=== PATIENT | male | born 1940 | race Caucasian/White ===

== ENCOUNTER 2022-01-11 14:50 | Outpatient (CLI) | payer MEDICARE, SELFPAY ==
--- NOTE | ~2022-01-11 | XR_ITS ---
XR abdomen/kub 1V 01/11/2022 15:18 Indication: Left-sided kidney stones. Procedure: KUB Comparison: No prior studies for comparison. Findings: There is a left internal ureteral stent in expected position. There are clustered stones in the lower pole of the left kidney. There are also clustered stones near the expected location of the left UPJ and left UVJ. There are several rounded calcifications in the right upper abdomen which may represent hepatic granulomas, although right renal stones are not excluded. Bowel pattern nonobstruc tive. Moderate lumbar spondylosis. Impression: 1: Left renal and ureteral stones with left internal ureteral stent in expected position. Reviewed, dictated and finalized at location A. Impression: 1: Left renal and ureteral stones with left internal ureteral stent in expected position.
== END 2022-01-11 14:51 | disposition home or self-care (01) ==
LOC: ANHIMG 15:02
PROVIDERS: PCP Internal Medicine; Visit Provider Urology
DX: N20.2 Calculus of kidney with calculus of ureter (principal)
CPT/HCPCS: 74018

== ENCOUNTER 2022-02-24 11:59 | Outpatient (CLI) | payer MEDICARE, SELFPAY ==
--- NOTE | ~2022-02-24 | XR_ITS ---
EXAMINATION: XR abdomen/kub 1V INDICATION: Left-sided kidney stone TECHNIQUE: Supine views of the abdomen were obtained on 2 radiographs. COMPARISON: 01/11/2022 FINDINGS: A left internal ureteral stent is in expected position. There are unchanged stones adjacent to the proximal stent at the ureteropelvic junction. Previous stones described near the distal urete r at the UVJ are not definitely seen. There are stones in the lower pole of the left kidney measuring up to 6 mm. There is moderate lumbar spondylosis. 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 The visualized lung bases are clear. There is a moderate volume of colonic stool. Right upper quadrant ca lcifications may reflect healed granulomatous disease of the liver and/or stones of the right the kid ruchi. IMPRESSION: 1. Left internal ureteral stent in expected position with stones in the left kidney lower pole and at the ureteropelvic junction. Reviewed, dictated and finalized at location F. T PREPPER IMPRESSION: 1. Left internal ureteral stent in expected position with stones in the left ki dney lower pole and at the ureteropelvic junction.
== END 2022-02-24 12:00 | disposition home or self-care (01) ==
PROVIDERS: PCP Internal Medicine; Visit Provider Urology
DX: N20.0 Calculus of kidney (principal)
CPT/HCPCS: 74018

== ENCOUNTER 2022-03-08 10:54 | Outpatient (CLI) | payer MEDICARE, SELFPAY ==
--- NOTE | 2022-03-08 11:04 | ECG_ITS ---
Measurements Intervals [place] Rate: 70 P: 28 IA: 220 QRS: -61 QRSD: 159 T: 118 QT: 455 QTc: 493 Interpretive Statements SINUS RHYTHM WITH FIRST DEGREE AV BLOCK RIGHT BUNDLE BRANCH BLOCK LEFT VENTRICULAR HYPERTROPHY AND ST-T CHANGE INFERIOR INFARCT, AGE INDETERMINATE BASELINE WANDER- V4 ABNORMAL ECG NO PREVIOUS ECG AVAILABLE FOR COMPARISON Electronically Signed On 03-08-2022 11:42:31 PHARMACY INFORMATICIST by Rafael Calvert D.O.
[2022-03-08 11:53] LABS: Anion Gap 11 mmol/L (8-16); Blood Urea Nitrogen 21 mg/dL (9-20); Calcium 9.3 mg/dL (8.4-10.2); Carbon Dioxide 23 mmol/L (22-30); Chloride 108 mmol/L (98-107); Estimated Glomerular Filt Rate > 60; Glucose 108 mg/dL (65-110); Potassium 4.1 mmol/L (3.4-5.0); Sodium 142 mmol/L (137-145)
[2022-03-08 11:55] LABS: INR 1.1; Prothrombin Time 14.1 Seconds (11.1-14.7)
[2022-03-08 11:56] LABS: Partial Thromboplastin Time 26.2 SECONDS (22.3-36.8)
== END 2022-03-08 10:55 | disposition home or self-care (01) ==
PROVIDERS: Anesthesiology; PCP Internal Medicine; Visit Provider Urology
DX: N20.0 Calculus of kidney (principal); E11.9 Type 2 diabetes mellitus without complications; Z01.818 Encounter for other preprocedural examination; I45.10 Unspecified right bundle-branch block; I44.0 Atrioventricular block, first degree
CPT/HCPCS: 36415; 80048; 85610; 85730; 87086; 93005

== ENCOUNTER 2022-03-12 00:57 | Day surgery (SDC) | payer MEDICARE, SELFPAY ==
[2022-03-02 12:47] VITALS: BMI 23.2
--- NOTE | 2022-03-02 13:04 | PC.NURSE ---
PRE-OP INSTRUCTIONS, PLEASE READ CAREFULLY Report to the Outpatient Waiting Room, entrance under the green pavilion located off [facility], at time _1045_ on date _03/12/22_. Planned Procedure Time: _1245_. Time changes happen often and if your time is changed the preop area will call you the afternoon before. - You and your visitor will be asked to self-screen and do not enter if you have any COVID symptoms. - Only one visitor is requested with a max of two and NO children visitors are allowed at this time. - The patient visitor may be requested to leave or wait in car when not with patient due to distancing restrictions. - A mask is optional within the hospital. Patients may have clear liquids (water, carbonated beverages, clear teas, apple juice) until 3 hours prior to surgery (0945 AM) with a maximum of 20 ounces. - No food from midnight until time of surgery Take the following medications with a SIP of water the morning of surgery: _TYLENOL IF NEEDED_ Medications to discontinue per DR. LUIS - _IBUPROFEN 7 DAYS PRIOR TO SURGERY, Date to take last dose 03/04/22_ Please no make-up, nail icelandic, hairspray, perfume, deodorant, or body powder the day of surgery. No jewelry (including any body piercings) or valuables the day of surgery, leave them at home. Please take a shower or bath the night before, or the morning of, surgery with an antibacterial soap. Wear comfortable, loose fitting clothing. - Jewelry must be removed prior to entering the operating room. Rings and piercings that are not removed may be cut off. - The hospital will not accept responsibility for valuables. - Please leave all valuables, including medications, at home the day of surgery. If you are going home after surgery, a licensed driver's license examiner must drive you home. - NO public transportation without another adult if you receive anesthesia. - We recommend that an adult stay with you for 24 hours following discharge. - We also recommend that you do not drive, make important decision, drink alcoholic beverages, or take any drugs that were not prescribed by your health care provider for at least 24 hours after your discharge time. Follow any additional instructions given to you from your surgeon. If you or anyone in your household have experienced Covid symptoms in the past week, please notify your surgeon or the nurse liaison at the phone number below for possible testing. Telephone instructions given to _PT'S DAUGHTER-THERESA_and asked if any additional questions and then verbalized understanding. Patient advised to call surgeon office or pre surgery nurse liaison [phone] if any additional questions.
--- NOTE | 2022-03-08 07:42 | P.HP_ITS ---
History of Present Illness History of Present Illness Consent: Risks, benefits, and alternatives have been discussed and questions answered. Patient agrees to proceed with procedure. Chief complaint: left renal and ureteral stone Narrative: Israel Galarza is a 81 year old male status post ESWL for a 2 cm stone in his left kidney in January 2022 at [facility]. Follow-up imaging reveals good fragmentation of the stone fragments along the left ureter. After discussion of options he elects for repeat left ESWL. There was minimal stone burden and he is quite irritated with the stent, hence our decision for simultaneous left ureteral stent. Aware of the risk of this including, but not limited to, adverse cardiopulmonary events, need for additional procedures, hematuria and perinephric hematoma. Review of Systems Review of Systems: All systems reviewed & are unremarkable except as noted in HPI and below [facility] Social History Social History Smoking status: Current every day smoker Tobacco type: cigarettes Additional smoking assessment comments: STATES SMOKES 10-15 CIGARETTES/DAY Alcohol intake: former Alcohol use details: QUIT 2006~ Substance use: never Substance use type: does not use Additional living arrangements comments: PT LIVES WITH SON Spiritual care concerns: No Meds Home Medications and Allergies Home Medications Medication Instructions Recorded Confirmed Type acetaminophen 500 mg tablet 1,000 mg PO Q6H PRN Pain 03/02/22 03/02/22 History ibuprofen 800 mg tablet 800 mg PO TID PRN Pain 03/02/22 03/02/22 History metformin 1,000 mg tablet 500 mg BID 03/02/22 03/02/22 History mirtazapine 30 mg tablet 30 mg PO HS 03/02/22 03/02/22 History pantoprazole 40 mg tablet,delayed 40 mg PO DAILY PRN Acid Reflux 03/02/22 03/02/22 History release Allergies Allergy/AdvReac Type Severity Reaction Status Date / Time No Known Allergies Allergy Verified 03/02/22 12:43 Exam Const: General: no acute distress Resp: Effort & Inspection: normal respiratory effort GI: Inspection: non-distended GI Palp: No abdominal tenderness and No Guarding due to palpation present (GI) Auscultation: normal bowel sounds Assessment and Plan Assessment and plan (1) Left renal stone: Code(s): N20.0 - Calculus of kidney Status: Acute Assessment and Plan: * cystoscopy, left ureteral stent removal, left ESWL
[2022-03-12] VITALS (7 sets, daily range): BP systolic 120–156; BP diastolic 70–85; PULSE 54–88; RESP 12–20; TEMP 36.6–37.1; O2SAT 94–100
--- NOTE | ~2022-03-12 | XR_ITS ---
XR abdomen/kub 1V 03/12/2022 11:09 Indication: ESWL. Renal stones. Procedure: KUB Comparison: Comparison to multiple prior studies sequentially, with oldest reviewed study dated 06/2021. Findings: There are bilateral renal stones. There is a left internal ureteral stent in expected posit ion. There are stones clustered at the expected location of the left UPJ. There are pelvic phlebolith s. Nonobstructive bowel gas pattern. Advanced lumbar spondylosis. Impression: 1: Persistent bilateral nephrolithiasis with clustered stones at the left UPJ. Left internal ureteral stent in expected position. Reviewed, dictated and finalized at location A. ERIOLOGIST MEDICAL Impression: 1: Persistent bilateral nephrolithiasis with clustered stones at the left UPJ. Left internal ureteral stent in expected position.
--- NOTE | 2022-03-12 06:45 | WPDHPUPDATE1 ---
History and Physical Update Update Date/Time: 03/12/22 06:45 History and Physical has been reviewed, including an updated exam of the patient. There are NO changes in the patient's condition. Risks, benefits, and alternatives have been discussed and questions answered. Patient agrees to proceed with procedure.
[2022-03-12] MEDS: LACTATED RINGERS 1,000 ML 30 ML IV CONT (11:30)
[2022-03-12 11:43] LABS: Glucose Point of Care 114 mg/dl (65-105)
--- NOTE | 2022-03-12 11:43 | P.PNAN_ITS ---
Anes - Initial Pre Proc Eval Procedure: Operation Date: 03/12/22 12:45 Proposed Procedures p Left Extracorporeal Shock Wave Lithotripsy, - Adarsh Torre MD s Cystoscopy with Left Stent Removal/Exchange - Adarsh Torre MD Date/Time: 03/12/22 11:43 Surgeon: Adarsh Torre MD Pre Op Diagnosis: left renal and ureteral stone Patient Data Age: 81 Gender: M Height: 1.7 m Weight: 67.27 kg Allergies Allergy/AdvReac Type Severity Reaction Status Date / Time No Known Allergies Allergy Verified 03/02/22 12:43 Home Medications Medication Instructions Recorded Confirmed Type acetaminophen 500 mg tablet 1,000 mg PO Q6H PRN Pain 03/02/22 03/02/22 History ibuprofen 800 mg tablet 800 mg PO TID PRN Pain 03/02/22 03/02/22 History metformin 1,000 mg tablet 500 mg BID 03/02/22 03/02/22 History mirtazapine 30 mg tablet 30 mg PO HS 03/02/22 03/02/22 History pantoprazole 40 mg tablet,delayed 40 mg PO DAILY PRN Acid Reflux 03/02/22 03/02/22 History release Patient hx anesthesia problems: none Family hx anesthesia problems: none Results Review: All pre-operative results and documents have been reviewed as part of the pre- operative evaluation. [facility] Social History Social History Smoking status: Current every day smoker Tobacco type: cigarettes Additional smoking assessment comments: STATES SMOKES 10-15 CIGARETTES/DAY Alcohol intake: former Alcohol use details: QUIT 2006~ Substance use: never Substance use type: does not use Living arrangements: with family Additional living arrangements comments: PT LIVES WITH SON Spiritual care concerns: No Anes - Eval Final PreProcedure Day of Procedure 03/12/22 11:43 Patient weight: normal Heart: regular rate and rhythm Lungs: decreased breath sounds Airway: Mallampati scale class II Neurological: other (alert) Last oral intake: >/= 8 hours ASA classification: III Emergent: no Anesthetic plan: proceed Anesthesia type and monitoring: general LMA and standard monitoring Results Review: All pre-operative results and documents have been reviewed as part of the pre- operative evaluation. Informed Consent: The patient's anesthetic plan and its attendant risks and benefits were discussed with the patient/family/POA. Questions were solicited and answers provided to the satisfaction of the patient/family/POA.
[2022-03-12] MEDS: ceFAZolin 2 GM/D5W 50 ML 2 GM/50 ML BAG IVPB (11:54)
--- NOTE | 2022-03-12 12:15 | P.OP_ITS ---
Procedure Note - Detailed Date of Procedure 03/12/22 Pre-op Diagnosis Left renal and ureteral stone Post-op Diagnosis Same Procedure Performed Cystoscopy, left ureteral stent removal, left ureteral ESWL Surgeon Adarsh Torre MD Anesthesia General Description of Procedure The patient was brought to the operative suite where he was placed in the supine position on the Dornier lithotripter table. Flexible cystoscopy was undertaken with a 16F flexible cystoscopy. There were no urethral strictures. The pr ostatic urethra estimated length was 2.0cm. There was mild obstruction of the prostatic urethra with no median lobe enlargement. The bladder mucosa was normal and there was a single, orthotopic ureteral orifice bilaterally. Tip of the indwelling stent is grasped but in this removed with ease. The patient was then repositioned in the supine position with the focal point of the lithotriptor Placed a collection of small residual fragments in the right proximal ureter.. A total of 3000 shocks were delivered at a power setting of 6. There appeared to be good fragmentation of the stone. The patient tolerated the procedure well and was taken to the recovery room in good condition. Drains No Packing Yes Pathology None sent
[2022-03-12 13:03] LABS: Glucose Point of Care 107 mg/dl (65-105)
== END 2022-03-12 14:09 | disposition home or self-care (01) ==
PROVIDERS: PCP Internal Medicine; Visit Provider Urology
PROC: (CPT 50590; principal; 2022-03-12 12:45)
PROC: (CPT 52352; 2022-03-12 12:45)
DX: N20.2 Calculus of kidney with calculus of ureter (principal); F17.210 Nicotine dependence, cigarettes, uncomplicated; Z79.84 Long term (current) use of oral hypoglycemic drugs
CPT/HCPCS: 50590; 36415; 74018; 80048; 82948; 85610; 85730; 87086; 93005; A9270; C1769; J0690; J1100; J2405; J2704; J7030; J7120

== ENCOUNTER 2022-11-02 19:19 | Observation (INO) | payer MEDICARE, SELFPAY ==
[2022-11-02] VITALS (7 sets, daily range): BP systolic 145–171; BP diastolic 56–97; PULSE 55–93; RESP 14–23; TEMP 36.4–36.7; O2SAT 96–98; BMI 21.9; BMI 22.6
--- NOTE | ~2022-11-02 | XR_ITS ---
EXAMINATION: XR chest 2V 11/02/2022 20:10 INDICATION: Altered mental status PROCEDURE: 2 view chest COMPARISON: No prior studies for comparison. FINDINGS: The lungs are clear. Mild cardiomegaly. There are no pleural effusions. There is no pneumo thorax suspected. IMPRESSION: 1: NO ACUTE CARDIOPULMONARY DISEASE. Reviewed, dictated and finalized at location A.
--- NOTE | ~2022-11-02 | CT_ITS ---
EXAMINATION: CT brain wo con DATE: 11/02/2022 20:05 INDICATION: Altered mental status TECHNIQUE: Computed tomography (CT) of the head was performed without intravenous contrast. The dose- length product was 605.33 mGy-cm. Automated exposure control and iterative reconstruction technique w ere employed. COMPARISON: None FINDINGS: Generalized atrophy. No acute intracranial hemorrhage, infarction, mass or mass effect. The re is an age-indeterminate left occipital lobe infarction. There are scattered mild periventricular a nd subcortical white matter changes, most likely related to small vessel ischemic disease (microangio lulu). No ventriculomegaly or midline shift. There is intracranial atherosclerosis. There is a chron ic infarction of the luis eduardo. No acute intracranial hemorrhage. Paranasal sinuses and mastoids are pneum atized. IMPRESSION: 1. Age-indeterminate infarction of the left occipital lobe. Consider correlation with MRI. 2: Chronic infarction of the luis eduardo. Reviewed, dictated and finalized at location A. IMPRESSION: 1. Age-indeterminate infarction of the left occipital lobe. Consider correlatio n with MRI. 2: Chronic infarction of the luis eduardo.
--- NOTE | 2022-11-02 19:23 | ECG_ITS ---
Measurements Intervals [place] Rate: 104 P: 14 PA: 238 QRS: -63 QRSD: 144 T: 108 QT: 402 QTc: 531 Interpretive Statements SINUS TACHYCARDIA WITH FIRST DEGREE AV BLOCK ATRIAL PREMATURE COMPLEXES RIGHT BUNDLE BRANCH BLOCK LEFT VENTRICULAR HYPERTROPHY AND ST-T CHANGE INFERIOR INFARCT, AGE INDETERMINATE BASELINE ARTIFACT- I, III, AVR, AVL, AVF, V1-V3 ABNORMAL ECG COMPARED TO ECG 03/08/2022 11:30:00 SINUS TACHYCARDIA NOW PRESENT Electronically Signed On 11-03-2022 6:59:13 CDT by Rafael Calvert D.O.
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
[2022-11-02 19:34] LABS: Basophils Absolute Auto 0.1 K/mm3 (0.0-0.1); Basophils Percent Auto 0.5 % (0.2-1.2); Eosinophils Absolute Auto 0.1 K/mm3 (0-0.3); Eosinophils Percent Auto 0.8 % (0-4.4); Hematocrit 45.9 % (42.0-52.0); Immature Granulocyte Absolute 0.03 K/mm3 (0.00-0.031); Immature Granulocyte Percent A 0.3 % (0-0.5); Lymphocytes Percent Auto 19.6 % (18.3-44.2); Mean Corpuscular HGB Conc 32.7 g/dl (32-36); Mean Corpuscular Hemoglobin 31.6 pg (26-34); Mean Corpuscular Volume 96.6 fl (80-100); Monocytes Absolute Auto 0.9 K/mm3 (0.1-0.6); Monocytes Percent Auto 7.9 % (2.6-8.5); Neutrophils Absolute Auto 7.6 K/mm3 (1.3-6.7); Neutrophils Percent Auto 70.9 % (45.5-73.1); Platelet Count Result 198 k/mm3 (150-375); Red Blood Count 4.75 M/mm3 (4.6-6.20); Red Cell Distribution Width 13.4 % (11.5-14.5); White Blood Count 10.7 K/mm3 (4.5-10.0)
[2022-11-02] MEDS: LACTATED RINGERS 1,000 ML 999 ML IV CONT (19:42)
[2022-11-02 19:52] LABS: Alanine Aminotransferase 24 U/L (6-50); Albumin Level 4.4 g/dL (3.5-5.1); Alkaline Phosphatase 105 U/L (38-126); Anion Gap 12 mmol/L (8-16); Aspartate Amino Transferase 29 U/L (17-59); Blood Urea Nitrogen 20 mg/dL (9-20); Calcium 9.9 mg/dL (8.4-10.2); Carbon Dioxide 22 mmol/L (22-30); Chloride 107 mmol/L (98-107); Estimated Glomerular Filt Rate > 60; Glucose 123 mg/dL (65-110); Lipase 123 U/L (23-300); Potassium 3.7 mmol/L (3.4-5.0); Sodium 141 mmol/L (137-145)
[2022-11-02 20:04] LABS: NT Pro B Type Natriuretic Pept 4010 pg/mL (19.9-100); Troponin I 0.044 ng/mL (0.000-0.034)
[2022-11-02 20:14] LABS: Lactic Acid Reflex 1.1 mmol/L (0.7-2.0)
[2022-11-02 20:54] LABS: Appearance Urine Turbid (Clear); Bacteria Urine None Seen /hpf; Bilirubin Urine Negative (Negative); Blood Urine Negative (Negative); Color Urine Yellow (Yellow); Glucose Urine UA 3+ mg/dL (Negative); Ketones Urine 1+ mg/dL (Negative); Leukocyte Esterase Ur Negative LEU/UL (Negative); Nitrate Urine Negative (Negative); Non Pathogenic Casts 0-2; Protein Urine 1+ mg/dL (Negative); RBC Urine 0-2 /hpf (0-2); Specific Grav Ur 1.029 (1.001-1.035); Squamous Epithelial Cell Urine None seen /hpf (Few); WBC Urine 0-5 /hpf; pH Urine 5.5 (5.0-9.0)
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
[2022-11-02 21:07] LABS: Add Urine Microscopic? YES
--- NOTE | 2022-11-02 21:46 | ADMGEN ---
This patient, Israel Galarza, was admitted to IMU Room 212-01. Patient/family oriented to hospital policies and general routines including ID bracelet, bed and alarms, visiting hours, pain management, procedures, bathroom and other care routines, personal items, smoking policy, room service/diet, and visiting hours. Information on how to activate the Rapid Response Team has been discussed. Patient/Family are encouraged to report perceived risks to care and to ask questions if they do not understand what they are told or what they should do.
[2022-11-02 21:56] LABS: Glucose Point of Care 100 mg/dl (65-105)
[2022-11-02 22:47] LABS: Creatine Kinase 120 U/L (55-170)
[2022-11-02 23:52] LABS: Acetaminophen < 10 ug/mL (10-30); Salicylate < 1.0 mg/dL (2-20)
[2022-11-03] VITALS (8 sets, daily range): BP systolic 132–152; BP diastolic 74–83; PULSE 52–91; RESP 18; TEMP 36.4–36.5; O2SAT 95–98
[2022-11-03 00:19] LABS: Barbiturate Screen Urine Negative (Negative); Benzodiazepines Screen Urine Negative (Negative)
[2022-11-03 00:25] LABS: Cannabinoid Screen Urine Negative (Negative); Cocaine Screen Urine Negative (Negative); Methadone Screen Urine Negative (Negative); Opiate Screen Urine Negative (Negative); Phencyclidine Screen Urine Negative (Negative)
[2022-11-03 00:28] LABS: Amphetamine Screen Urine Negative (Negative)
[2022-11-03 08:08] LABS: Glucose Point of Care 121 mg/dl (65-105)
[2022-11-03] MEDS: ATORVASTATIN 40 MG TABLET PO (08:24)
--- NOTE | 2022-11-03 11:28 | PM.DS ---
DS: Admitting Diagnosis Discharge Date November 03, 2022 Admitting Diagnosis Altered mental status, dementia DS: Discharge Diagnosis Discharge Diagnosis (1) Altered mental status: Qualifiers: Altered mental status type: transient alteration of awareness Qualified Code(s): R40.4 - Transient alteration of awareness Code(s): R41.82 - Altered mental status, unspecified Status: Acute Assessment and Plan: admit to regular medical floor likely dementia consider normal pressure hydrocephalus due to recurrent falls dementia and urinary incontinence consider MRI of the brain consider neurology consult (2) Recurrent falls: Code(s): R29.6 - Repeated falls Status: Acute Assessment and Plan: PT OT consult DS: Summary Hospital Course Hospital Course: Patient is an 82-year-old male who apparently has some possibility underlying dementia. He apparently was found yesterday and a gas station doubt history from his house was found to be altered. He apparently was able to drive. Son is present on the day that I evaluated prior to discharge. Workup was unrevealing. According to the son he was outside for couple hours prior to going to the gas station and was likely overheated and this contributed to his confusion. Patient's son reports that he is back to his baseline. He is doing his normal activities. He is eating and drinking and can be discharged. Follow up with primary care physician. Time Spent with Patient Time attestation: Total time spent providing and/or coordinating discharge services: Exam Narrative: patient is laying in a stretcher Const: General: cooperative, comfortable, no acute distress, well developed, alert, awake and average body habitus Nutritional Appearance: average body habitus Orientation/consciousness: oriented to person and oriented to place HENMT: Head: normal to inspection, normocephalic and atraumatic Ears: hearing grossly normal bilaterally Face/Nose/Sinus: normal facial exam Face and sinus: normal facial exam Eyes: General: appearance normal, both eyes and all related structures Pupils: Equal, round and reactive pupils present EOM: EOMs intact bilaterally Neck: Neck: full ROM, no lymphadenopathy and no JVD Thyroid: thyroid normal Lymphatic: no lymphadenopathy noted Resp: Effort & Inspection: normal respiratory effort and able to speak in complete sentences Auscultation: clear to auscultation bilaterally Cardio: Jugular venous distension: no JVD Rate: regular rate Rhythm: regular rhythm Heart sounds: S1 normal heart sound present and S2 normal heart sound present : General: Yes deferred Skin: Rashes: no rashes Wounds: no wounds Neuro: General: oriented to person, oriented to place and CN's II-XI intact bilaterally Cranial nerves: Yes CN's II-XII intact bilaterally and Yes Equal, round and reactive pupils present Cognition (Neuro): abnormal cognition ( confusion, amnesia) Speech: normal speech Gait exam (Neuro): Normal gait present Motor exam (neuro): 5/5 motor strength present throughout Extrem: General: normal to inspection, full ROM, no joint enlargement and no pedal edema DS: Data Data Completed and Pending Labs on day of discharge: Labs from last 24 hours 11/03/22 11/02/22 11/02/22 07:55 21:50 20:26 WBC RBC Hgb Hct MCV MCH MCHC RDW Plt Count MPV Immature Gran % (Auto) Neut % (Auto) Lymph % (Auto) [place] % (Auto) Eos % (Auto) Baso % (Auto) Lymph # (Auto) [place] # (Auto) Eos # (Auto) Baso # (Auto) Abs Immat Gran (auto) Absolute Neuts (auto) Absolute Nucleated RBC Nucleated RBC % Sodium Potassium Chloride Carbon Dioxide Anion Gap BUN Creatinine Estim Creat Clear Calc Estimated GFR Glucose POC Capillary Glucose 121 H 100 Lactic Acid Calcium Total Bilirubin Direct Bilirubin AST A
--- NOTE | 2022-11-03 12:36 | PC.NURSE ---
discharge instructions discussed with pt and son- both verbalized understanding- home via w/c accompanied by staff to vehicle driven by son
--- NOTE | 2022-11-03 16:42 | PCPTNOTE ---
On 11/03/22, the student, MARÍA ELENA Marino, provided care and completed [facility] documentation on this patient. I have reviewed the student's documentation and agree with the findings.
== END 2022-11-03 12:40 | disposition home or self-care (01) ==
LOC: ANHED 20:55 → ANHIMU 21:35
PROVIDERS: Admitting Provider Internal Medicine; Emergency Provider Emergency Medicine; PCP Internal Medicine; Visit Provider Chiropractor
DX: R41.82 Altered mental status, unspecified (principal); R29.6 Repeated falls; I45.10 Unspecified right bundle-branch block; R94.31 Abnormal electrocardiogram [ECG] [EKG]; R00.0 Tachycardia, unspecified; E11.9 Type 2 diabetes mellitus without complications; E78.5 Hyperlipidemia, unspecified; F17.210 Nicotine dependence, cigarettes, uncomplicated; Z86.73 Personal history of transient ischemic attack (TIA), and cerebral infarction without residual deficits; Z79.1 Long term (current) use of non-steroidal anti-inflammatories (NSAID); Z79.84 Long term (current) use of oral hypoglycemic drugs; Z79.899 Other long term (current) drug therapy
CPT/HCPCS: 36415; 70450; 71046; 80048; 80076; 80307; 81001; 82550; 82948; 83605; 83690; 83880; 84484; 85025; 93005; 96360; 97161; 97165; 99285; A9270; G0378; J7120